=== PATIENT | female | born 1965 | race Caucasian/White ===

== ENCOUNTER 2019-05-09 07:32 | Day surgery (SDC) | payer OTHER ==
[~2019-05-09] VITALS: Ht 162.6 cm; Wt 54.6 kg
[~2019-05-09 07:32] MED LIST: CHLORHEXIDINE GLUCONATE 0.12 % 15ML UDC (PERIDEX ORAL RINSE) As Ordered ONE; LIDOCAINE 1% MDV 20ML VIAL SQ PRN; LIDOCAINE 2% INJ 100 MG/5 ML SDV (FOR ANES.) As Ordered ONE; LIDOCAINE 2% W/ EPINEPHRINE 1.7 ML DENTAL INJ As Ordered ONE; LR 1,000 ML IV ONE; MIDAZOLAM INJ 2 MG/2 ML VIAL (J2250) As Ordered ONE; ONDANSETRON 4MG/2ML VIAL (J2405) As Ordered ONE; SUBO8MIS SL; ceFAZolin SOD 2 GM in IV 1 EA IV ONE; dexameTHASONE 4 MG/ML 1ML VIAL (J1100) As Ordered ONE; fentaNYL 100 MCG/2 ML INJECTION (J3010) As Ordered ONE; propofoL 200 MG/20 ML VIAL As Ordered ONE
[2019-05-09] MEDS ORDERED: CIPR500T3 PO (07:41)
[2019-05-09] MEDS ORDERED: METOCLOPRAMIDE INJ 10MG/2ML VIAL (J2765) As Ordered ONE (08:25)
[2019-05-09] MEDS ORDERED: KETAMINE HCL 200 MG/20 ML VIAL As Ordered ONE (08:40)
[2019-05-09] MEDS ORDERED: LIDOCAINE 2% INJ 100 MG/5 ML SDV (FOR ANES.) As Ordered ONE (08:42)
[2019-05-09] MEDS ORDERED: ePHEDrine SULFATE 25 MG/5 ML(5MG/ML) SYRINGE As Ordered ONE (08:48)
[2019-05-09] MEDS ORDERED: PHENYLephrine HCL 500 MCG/5 ML (100MCG/ML) SYRINGE (J2370) As Ordered ONE (08:48)
[2019-05-09] MEDS ORDERED: ACETAMINOPHEN 1000MG 100ML IV BTL (OFIRMEV) (J0131 PER 10MG) As Ordered ONE (08:54)
[2019-05-09] MEDS ORDERED: KETOROLAC 60 MG/2 ML VIAL (J1885) As Ordered ONE (09:23)
[2019-05-09] MEDS ORDERED: PERCOCET 5MG/325MG TAB PO PRN (10:00)
[2019-05-09] MEDS ORDERED: fentaNYL 100 MCG/2 ML INJECTION (J3010) IV PRN (10:00)
[2019-05-09] MEDS ORDERED: METOCLOPRAMIDE INJ 10MG/2ML VIAL (J2765) IV PRN (10:00)
[2019-05-09] MEDS ORDERED: LR 1,000 ML IV SCH ×2 (10:00)
[2019-05-09] MEDS ORDERED: ONDANSETRON 4MG/2ML VIAL (J2405) IV PRN (10:00)
--- NOTE | 2019-05-09 10:45 | RO ---
DATE OF PROCEDURE: 05/09/2019 PREPROCEDURE DIAGNOSIS: Grossly decayed remaining dentition. POSTPROCEDURE DIAGNOSIS: Grossly decayed remaining dentition PROCEDURE: Extraction of teeth 3, 4, 5, 11, 12, 13, 20, 21, 22, 23, 24, 25, 26, 27, 28, 29, 30 with alveoplasty in the main operating room under general anesthesia. SURGEON: Billy Guevara DDS AIR BRAKE ADJUSTER: Yasmine. Nurse in the room was Ghada. ANESTHESIA: General by Dr. Kenny and ARNIE Borrero. COMPLICATIONS: There were no complications during the case. FLUIDS: The patient received approximately 1200 mL of lactated Ringers. ESTIMATED BLOOD LOSS: Less than 50 mL. DISPOSITION: The patient was taken to the postanesthesia care unit (PACU) in stable condition and later admitted for short stay, discharged before 24 hours for her diagnosis of obstructive sleep apnea. INDICATIONS FOR THE PROCEDURE: The patient is a 54-year-old female with a complicated medical history including obstructive sleep apnea, hepatitis C, multiple sclerosis and narcotic addiction. Also with a history of difficult intubation and unsuccessful prior sedation attempts. Given the patient's complicated medical history and poor dental hygiene, I elected to recommend to the patient to go to the operating room for removal of the remainder of her teeth in preparation for dentures. All the risks, complications and alternatives of this were discussed with the patient who elected to undergo the procedure in the main operating room. All the necessary paperwork was completed and all precautions were taken. DESCRIPTION OF PROCEDURE: The patient was seen in the preoperative holding area and all necessary paperwork was completed. She was taken to operating room #2 where she was placed under general anesthesia via nasal endotracheal intubation with no complications. The tube was then secured in a head wrap by the oral maxillofacial surgeon. A time out was conducted. The throat was suctioned clean and dried and a throat pack was placed. Local anesthetic in the form of 2% lidocaine with 1:100,000 epinephrine was injected in 1.7 mL carpules times six. After anesthetizing, incisions were made in the skin with a 15-blade to expose the alveolus. The teeth were then loosened using a #77R elevator. The teeth were then removed. The sockets were curetted. The bone was trimmed to allow for solid denture base with no sharp edges using a rongeur and a bone file. The mouth was then thoroughly irrigated and the area was sutures using a #3-0 chromic gut suture. There were no complications with any of the teeth removal. The bone was reduced using a 703 Bur and the teeth surgically removed. The throat was then suction clean and dried and the throat pack was removed. The patient was allowed to emerge from general anesthesia and did so without any complication. She was taken to the postanesthesia care unit (PACU) in stable condition and later admitted for a short stay in the hospital. Edited: [email or web address] 05/30/2019 1240 MTDD
[2019-05-09 11:25] VITALS: BP 132/81
[2019-05-09] MEDS: ACETAMINOPHEN TAB 650MG DOSE (2X325MG) PO SCH ×2 (12:38→18:16)
[2019-05-09] MEDS: IBUPROFEN 600 MG TAB PO SCH ×2 (12:39→18:17)
[2019-05-09 13:30] VITALS: BP 104/68
[2019-05-09 14:00] VITALS: BP 92/57
[2019-05-09 19:35] VITALS: BP 94/55
[2019-05-09] MEDS: CIPROFLOXACIN 500 MG TAB PO SCH (20:01)
[2019-05-09 22:00] VITALS: BP 100/56
[2019-05-10] MEDS: IBUPROFEN 600 MG TAB PO SCH ×2 (00:14→05:19)
[2019-05-10] MEDS: ACETAMINOPHEN TAB 650MG DOSE (2X325MG) PO SCH ×2 (00:14→05:20)
[2019-05-10 02:00] VITALS: BP 100/67
[2019-05-10] MEDS: CIPROFLOXACIN 500 MG TAB PO SCH (05:17)
[2019-05-10 06:00] VITALS: BP 118/67
== END 2019-05-10 10:00 | disposition home or self-care (01) ==
LOC: M SDC 07:32 → M MSPAV 11:14 → M SDC 05-10 10:00
PROVIDERS: ATTEND Dentist
DX: K02.9 Dental caries, unspecified (principal); J44.9 Chronic obstructive pulmonary disease, unspecified; K21.9 Gastro-esophageal reflux disease without esophagitis; Z90.5 Acquired absence of kidney; Z86.14 Personal history of Methicillin resistant Staphylococcus aureus infection; G35 Multiple sclerosis; D68.9 Coagulation defect, unspecified; B19.20 Unspecified viral hepatitis C without hepatic coma; Z85.3 Personal history of malignant neoplasm of breast; Z90.11 Acquired absence of right breast and nipple; G47.9 Sleep disorder, unspecified; Z88.8 Allergy status to other drugs, medicaments and biological substances; Z88.2 Allergy status to sulfonamides; Z88.6 Allergy status to analgesic agent; Z88.5 Allergy status to narcotic agent; F19.10 Other psychoactive substance abuse, uncomplicated; Z79.899 Other long term (current) drug therapy
CPT/HCPCS: 88300; D7210; D7310; D7311; D9223; J0131; J0690; J1100; J1885; J2250; J2370; J2765; J3010